=== PATIENT | male | born 1970 | race Caucasian/White ===

== ENCOUNTER 2018-07-25 10:31 | Emergency (ER) | payer SELFPAY ==
[2018-07-25] MEDS ORDERED: Sodium Chloride 0.9% 1,000 ML IV SCH (11:15)
--- NOTE | 2018-07-25 11:15 | EDM.PDOC ---
ED HPI GENERAL MEDICAL PROBLEM - General Chief Complaint: ENT Problem Stated Complaint: MOUTH PAIN, SWOLLEN GLAND Time Seen by Provider: 07/25/18 10:47 Source of Information: Reports: Patient, Family (), RN Notes Reviewed History Limitations: Reports: No Limitations - History of Present Illness INITIAL COMMENTS - FREE TEXT/NARRATIVE: The patient states that he developed pain to the left side of his face, the left side of his neck, and under his tongue this past , 07/22/2018. No recent fever. No recent sore throat. No recent cough. No recent dentalgia. The patient states that he was seen by Dr. Barnes at the [facility] ED in [place], [place], on 07/23/2018. The patient states that no tests were done , but that he was prescribed Augmentin for a possible infected stone in a salivary gland. He was instructed to take sialagogues. The patient now presents, stating that sialagogues make his pain worse, as does turning his head to the left. No prior similar symptoms. The patient does not have a PCP. He does not recall when his last general physical examination was. His vaccinations are not up-to-date. Left Face/Facial Pain Score (Numeric/FACES): 8 - Related Data Allergies Allergy/AdvReac Type Severity Reaction Status Date / Time No Known Allergies Allergy Verified 07/25/18 10:38 Home Meds: Home Meds Amoxicillin/Potassium Clav [Amox-Clav 875-125 mg Tablet] 1 tab PO BID 07/25/18 [ History] Past Medical History - Past Surgical History HEENT Surgical History: Reports: Tonsillectomy, Other (See Below) ( Maxillofacial surgery, including rhinoplasty, age 6) Musculoskeletal Surgical History: Reports: Arthroscopic Procedure (left knee) Social & Family History - Tobacco Use Smoking Status *Q: Former Smoker Second Hand Smoke Exposure: Yes - Caffeine Use Caffeine Use: Reports: Coffee - Alcohol Use Alcohol Use History: Yes Date/Time of Last Drink Comment: Alcoholic, 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 ED EXAM, GENERAL - Physical Exam Exam: See Below Exam Limited By: No Limitations General Appearance: Alert, WD/WN, No Apparent Distress Eye Exam: Bilateral Eye: EOMI, Normal Inspection Ears: Normal External Exam, Normal Canal, Hearing Grossly Normal, Normal TMs Nose: Normal Inspection, Normal Mucosa, No Blood Throat/Mouth: Normal Lips, Normal Teeth, Normal Gums, Normal Voice, Other ( Visible swelling noted to the left Angella's duct, and a palpable stone is present approximately 1 cm from the duct os. This area is quite tender.) Head: Atraumatic, Normocephalic. No: Facial Swelling Neck: Supple, Full Range of Motion, Lymphadenopathy (L), Tender Lateral (left). No: Lymphadenopathy (R) Course - Vital Signs Last Recorded V/S: Last Vital Signs Temp 36.3 C 07/25/18 10:41 Pulse 90 07/25/18 10:41 Resp 16 07/25/18 10:41 BP 137/102 H 07/25/18 10:41 Pulse Ox 98 07/25/18 10:41 - Orders/Labs/Meds Orders: Active Orders 24 hr Category Date Time Status Sodium Chloride 0.9% [Normal Saline] 1,000 ml Med 07/25/18 11:15 Active IV ASDIRECTED Medication Orders Sodium Chloride (Normal Saline) 1,000 mls @ 150 mls/hr IV ASDIRECTED AHMET Last Admin: 07/25/18 11:40 Dose: 150 mls/hr Labs: Laboratory Tests 07/25/18 07/25/18 Range/Units 11:30 11:30 WBC 7.74 (4.23-9.07) K/mm3 RBC 5.41 (4.63-6.08) M/mm3 Hgb 15.5 (13.7-17.5) gm/L Hct 46.9 (40.1-51.0) % MCV 86.7 (79.0-92.2) fl MCH 28.7 (25.7-32.2) pg MCHC 33.0 (32.2-35.5) g/dl RDW Std Deviation 39.1 (35.1-43.9) fL Plt Count 285 (163-337) K/mm3 MPV 9.4 (9.4-12.3) fl Neutrophils % (Manual) 57 (40-60) % Band Neutrophils % 0 (0-10) % Lymphocytes % (Manual) 39 (20-40) % Atypical Lymphs % 0 % Monocytes % (Manual) 2 (2-10) % Eosinophils % (Manual) 2 (0.8-7.0) % Basophils % (Manual) 0 L (0.2-1.2) Platelet Estimate Adequate RBC Morph Comment Normal Sodium 142 (136-145) mEq/L Potassium 3.8 (3.5-5.1) mEq/L Chloride 103 (98-107) mEq/L Carbon Dioxide 31 (21-32) mEq/L Anion Gap 11.8 (5-15) BUN 21 H (7-18) mg/dL Creatinine 0.8 (0.7-1.3) mg/dL Est Cr Clr Drug Dosing 103.63 mL/min Estimated GFR (MDRD) > 60 (>60) mL/min BUN/Creatinine Ratio 26.3 H (14-18) Glucose 90 (74-106) mg/dL Calcium 8.9 (8.5-10.1) mg/dL Total Bilirubin 0.3 (0.2-1.0) mg/dL AST 26 (15-37) U/L ALT 33 (16-63) U/L Alkaline Phosphatase 67 (46-116) U/L Total Protein 7.5 (6.4-8.2) g/dl Albumin 4.0 (3.4-5.0) g/dl Globulin 3.5 gm/dL Albumin/Globulin Ratio 1.1 (1-2) Meds: Medications Generic Name Dose Route Start Last Admin Trade Name Freq PRN Reason Stop Dose Admin Sodium Chloride 1,000 mls @ 150 mls/hr 07/25/18 11:15 07/25/18 11:40 Normal Saline IV 150 mls/hr ASDIRECTED AHMET Administration Discontinued Medications Generic Name Dose Route Start Last Admin Trade Name Freq PRN Reason Stop Dose Admin Iopamidol 80 ml 07/25/18 12:21 07/25/18 12:21 Isovue-300 (61%) IVPUSH 07/25/18 12:22 80 ml ONETIME ONE Administration - Re-Assessments/Exams Free Text/Narrative Re-Assessment/Exam: 07/25/18 11:13 Clinically, the patient likely has left sublingual sialolithiasis. I do not strongly suspect an infection, however, in order to confirm the diagnosis as well as rule out an associated abscess, I have ordered a CT scan of the soft tissue of the neck without and with IV contrast, along with blood work. 07/25/18 12:43 CT of the soft tissue of the neck without and with IV contrast is read by Dr. Gatica as: 1. Small calcification on the right side which could represent a right parotid duct stone but more likely representing a vascular calcification since reported symptoms are on the left side. 2. Areas of low density within the left submandibular salivary gland presumably due to areas of edema and infection. Please correlate that patient has symptoms of sialoadenitis to the left submandibular salivary gland region. 3. No additional abnormality is seen other than degenerative change within the cervical spine. 07/25/18 13:03 Test results discussed with the patient and his . Clinically, I suspect that the patient's problem is in his left sublingual salivary duct, not the left submandibular salivary duct, however, given the CT findings, I will recommend that the patient continue taking Augmentin, and I will refer him to Dr. Russ Gilmore, ENT, for further. The patient stated that they would prefer to follow-up with an ENT in [place], [place], however, I do not have anyone there to refer him to. Departure - Departure Time of Disposition: 12:49 Disposition: Home, Self-Care 01 Condition: Fair Clinical Impression: Sublingual gland swelling - Discharge Information *PRESCRIPTION DRUG MONITORING PROGRAM REVIEWED*: Not Applicable *COPY OF PRESCRIPTION DRUG MONITORING REPORT IN PATIENT CAREY: Not Applicable Referrals: PCP,None [Primary Care Provider] - Russ Gilmore MD [Ordering Only Provider] - Forms: ED Department Discharge Additional Instructions: You were seen in the emergency room for continued pain to the left side of her face and neck, and under your tongue. Workup in the ER included blood work and a CT scan of your neck. Your blood work returned unremarkable. You do not have an elevated WBC count to suggest an infection. The CT scan of your neck found inflammation of your left submandibular gland, but no obvious stone in the duct. Based on your history, physical exam, and ER tests, we suspect that you have inflammation to your left sublingual duct, likely due to a stone. We recommend that you continue to take the Augmentin that was previously prescribed to you. We recommend that you continue to use sialagogues = tart candy or fruits that encourage saliva, frequently, and stay well hydrated. We recommend that you follow-up with Dr. Russ Gilmore, ENT in [place], or the ENT of your choice, at the next available appointment. If any other problems, please do not hesitate to return to the ER. - My Orders Last 24 Hours: My Active Orders 07/25/18 11:15 Sodium Chloride 0.9% [Normal Saline] 1,000 ml IV ASDIRECTED - Assessment/Plan Last 24 Hours: My Active Orders 07/25/18 11:15 Sodium Chloride 0.9% [Normal Saline] 1,000 ml IV ASDIRECTED
[2018-07-25] MEDS ORDERED: Iopamidol 612 MG/ML 100 ML Bottle IVPUSH ONE (12:21)
--- NOTE | 2018-07-25 12:36 | CT ---
CT neck (without and with intravenous contrast) Technique: Noncontrast imaging obtained from above the parotid salivary glands inferiorly through the mandible. Study was obtained without and with intravenous contrast. Findings: Small calcification is noted on the right side which could possibly represent a right parotid duct stone although given that the patient has symptoms are on the left side this may simply represent minimal vascular calcification. No other abnormal calcifications are seen along the course of the submandibular or parotid salivary glands. Contrast images shows low-density areas within the left submandibular gland suspicious for areas of edema and infection. No additional salivary gland abnormality is seen. Visualized lung apices are clear. No adenopathy or other abnormality is seen within the soft tissues of the neck. Bone window settings shows scattered degenerative change within the cervical spine with disc space narrowing and posterior spurring at C4-C5, C5-C6 and C6-C7. Mild degenerative apophyseal change is scattered throughout the cervical spine. Impression: 1. Small calcification on the right side which could represent a right parotid duct stone but more likely representing vascular calcification since reported symptoms are on the left side. 2. Areas of low density within the left submandibular salivary gland presumably due to areas of edema and infection. Please correlate that patient has symptoms of sialadenitis to the left submandibular salivary gland region. 3. No additional abnormality is seen other than degenerative change within the cervical spine. Diagnostic code #3
== END 2018-07-25 13:18 | disposition home or self-care (01) ==
LOC: JD.ED 10:31
DX: K11.8 Other diseases of salivary glands (principal); Z87.891 Personal history of nicotine dependence
CPT/HCPCS: 36415; 70492; 80053; 85007; 85027; 96360; 96361; 99284; J7040; Q9967; 99283

== ENCOUNTER 2018-09-08 10:18 | Emergency (ER) | payer BC ==
--- NOTE | 2018-09-08 11:09 | EDM.PDOC ---
ED HPI GENERAL MEDICAL PROBLEM - General Chief Complaint: Lower Extremity Injury/Pain Stated Complaint: RT KNEE PAIN Time Seen by Provider: 09/08/18 10:43 Source of Information: Reports: Patient, Family History Limitations: Reports: No Limitations - History of Present Illness INITIAL COMMENTS - FREE TEXT/NARRATIVE: Pt is 47 yo M that comes in today for L knee pain after hurting it 1 month ago when he landed on a metal grate. He states the pain has been increasing x 1 week. Pain is made worse with weight bearing, movement, palpitation, and when a sheet or piece of clothing rubs against it. He states the pain is located on the lateral half of the knee cap and extends down the tendon. He denies that there was any wound to the knee, just bruising. He states he saw a doctor in [place] where they took an XR and r/o fracture. He was not given a brace or crutches at that time. He states he had similar pain 15 years ago when he fractured his L knee cap and had it scoped. Ice and ibuprofen have not helped. Denies F/C, N/V/D, swelling of the joint or any other concerns at this time. No new injury since the initial incident. Right Knee Pain Score (Numeric/FACES): 10 - Related Data Allergies Allergy/AdvReac Type Severity Reaction Status Date / Time No Known Allergies Allergy Verified 09/08/18 10:28 Home Meds: Home Meds predniSONE [Prednisone] 20 mg PO DAILY 10 Days #10 tablet 09/08/18 [Rx] Past Medical History - Past Surgical History HEENT Surgical History: Reports: Tonsillectomy, Other (See Below) ( Maxillofacial surgery, including rhinoplasty, age 6) Musculoskeletal Surgical History: Reports: Arthroscopic Procedure (left knee) Social & Family History - Caffeine Use Caffeine Use: Reports: Coffee - Living Situation & Occupation Living situation: Reports: , with Spouse Occupation: Employed ([employer]) Review of Systems - Review of Systems Review Of Systems: ROS reveals no pertinent complaints other than HPI. ED EXAM, GENERAL - Physical Exam Exam: See Below Exam Limited By: No Limitations General Appearance: Alert, WD/WN, No Apparent Distress Eye Exam: Bilateral Eye: EOMI, Normal Inspection, PERRL Ears: Normal External Exam, Hearing Grossly Normal Nose: Normal Inspection, Normal Mucosa, No Blood Head: Atraumatic, Normocephalic Neck: Normal Inspection, Supple, Non-Tender, Full Range of Motion Respiratory/Chest: No Respiratory Distress, Lungs Clear, Normal Breath Sounds, No Accessory Muscle Use, Chest Non-Tender Cardiovascular: Normal Peripheral Pulses, Regular Rate, Rhythm, No Edema, No Gallop, No JVD, No Murmur, No Rub Peripheral Pulses: 4+: Posterior Tibial (L), Posterior Tibial (R), Dorsalis Pedis (L), Dorsalis Pedis (R) Back Exam: Normal Inspection, Full Range of Motion, NT Extremities: Normal Inspection, Normal Range of Motion, No Pedal Edema, Normal Capillary Refill, Leg Pain (L knee). No: Joint Swelling, Increased Warmth Psychiatric: Normal Affect, Normal Mood Skin Exam: Warm, Dry, Intact, Normal Color, No Rash Course - Vital Signs Last Recorded V/S: Last Vital Signs Temp 98.7 F 09/08/18 10:29 Pulse 61 09/08/18 10:29 Resp 16 09/08/18 10:29 BP 120/84 09/08/18 10:29 Pulse Ox 99 09/08/18 10:29 - Orders/Labs/Meds Orders: Active Orders 24 hr Category Date Time Status Knee Min 4V Rt [CR] Stat Exams 09/08/18 11:36 Taken - Re-Assessments/Exams Free Text/Narrative Re-Assessment/Exam: 09/08/18 11:[address] Parish. Currently in surgery but will be here in about 10 minutes to further discuss patient. 09/08/18 11:[address] Parish and he states it sounds like Patellofemoral Arthritis. At this point, he recommends repeat XR as we do not have access to the originals, steroids and to allow weight bearing. He can follow up with Dr. Parish outpt if continues or gets worse. 09/08/18 11:58 Knee XR reviewed by myself and Dr. Martin- nothing acute seen at this time. Departure - Departure Time of Disposition: 11:32 Disposition: Home, Self-Care 01 Condition: Fair Clinical Impression: Patellofemoral arthritis of left knee - Discharge Information *PRESCRIPTION DRUG MONITORING PROGRAM REVIEWED*: Not Applicable *COPY OF PRESCRIPTION DRUG MONITORING REPORT IN PATIENT CAREY: Not Applicable Prescriptions: predniSONE [Prednisone] 20 mg PO DAILY 10 Days #10 tablet Instructions: What You Need to Know About Osteoarthritis Referrals: PCP,None [Primary Care Provider] - Gen Parish MD [Physician] - Forms: ED Department Discharge Additional Instructions: You were seen in the ED today for right knee pain for 1 month that has been worsening for the past week. Your original Xray done in [place] was unable to be obtained, so we redid your knee Xray here. There is no evidence of fracture at this time. It is possible there may be a soft tissue injury that would require further imaging, but your physical exam was unremarkable at this time. Therefore , after discussing your case with the orthopedic, it is more likely this is arthritis of the knee and you will be sent home with oral steroids for 10 days to help alleviate symptoms. If the pain continues or worsens after 10 days of treatment, please follow up with orthopedic Dr. Parish by calling to make an appointment. If new or worsening symptoms, return to the ED. - My Orders Last 24 Hours: My Active Orders 09/08/18 11:36 Knee Min 4V Rt [CR] Stat - Assessment/Plan Last 24 Hours: My Active Orders 09/08/18 11:36 Knee Min 4V Rt [CR] Stat
--- NOTE | 2018-09-08 13:07 | CR ---
Right knee: Four views of the right knee were obtained. Comparison: No previous knee exam. Medial and lateral joint spaces are maintained in height. No joint effusion is seen. Vascular calcification is noted. Impression: 1. Vascular calcification. 2. Knee exam is otherwise unremarkable. Diagnostic code #2
== END 2018-09-08 12:27 | disposition home or self-care (01) ==
LOC: JD.ED 10:18
DX: M17.12 Unilateral primary osteoarthritis, left knee (principal); Z98.890 Other specified postprocedural states
CPT/HCPCS: 73564-26-RT; 73564-RT; 99283; 99283-25